=== PATIENT | male | born 1965 | race African-American/Black ===

== ENCOUNTER 2020-05-23 12:00 | Emergency (ER) | payer MEDICAID ==
[~2020-05-23] VITALS: Ht 172.7 cm; Wt 76.2 kg
[2020-05-23 12:19] VITALS: BP 158/59
--- NOTE | 2020-05-23 12:57 | NUR ---
LENNOX ARCHIBLE [phone]
[2020-05-23] MEDS ORDERED: KETOROLAC TROMETHAMINE 15 MG/ML VIAL ONE (13:14)
[2020-05-23] MEDS: KETOROLAC TROMETHAMINE INJ 30 MG/ML VIAL IM ONE (13:26)
--- NOTE | 2020-05-23 14:43 | NUR ---
Patient discharged to home in stable condition. Written and verbal after care instructions given. Patient verbalizes understanding of instruction. GIVEN RESOURCES BY SW. MATTY
--- NOTE | 2020-05-23 14:45 | NUR ---
ED RN Gener notified this patient is homeless and being discharged. SW provided the following resources. Substance Abuse resources provided included: [facility] Self-[facility]pl[facility] ([facility]) ; [facility] [address] [facility]. [place] 9[address] ; [facility] [place] [address] [facility] [address] ; [facility] [address] [address] [facility] [id number] ; [facility] [place] [address] [facility] [address] ; [facility] [address] [facility] [id number] ; [facility] [address] [facility] [id number] ; [facility] Substance Abuse Helpline([facility] ; [facility] ; [facility] [place]; [facility] [place]; [facility]; [facility] [place]; [facility] [place]; [facility]; [facility] [place]; Alcoholics Anonymous -[facility]; [facility] ; Marijuana Anonymous [facility]; Narcotics Anonymous www.na.org. Year-round shelters : [facility] [place] [address] [place], [place] [id number] ; [facility] [place] [address] [place] [address]; [facility] [facility]. [facility] [address] Hygiene: [facility]: [address] [address]. [place] ; [facility] [address] [facility] ; [facility] [address] [place] . Food Resources: [place] [facility] [address] [place]; Meet Each Need wit [place] ([facility]) [address] [facility]; [facility] [address] [facility]; [facility] [address] [facility] [place]. Mental Health resources provided: [facility] [address] [place] [address] ; [facility] [place] [address] [facility] [address], [place] [address] ; Miguelina Godinez [facility] [address] [place] [address] ; [facility] [address] [place] [address]
== END 2020-05-23 14:45 | disposition home or self-care (01) ==
LOC: ER 12:07
DX: S93.491A Sprain of other ligament of right ankle, initial encounter (principal); R60.0 Localized edema; G40.909 Epilepsy, unspecified, not intractable, without status epilepticus; X58.XXXA Exposure to other specified factors, initial encounter; Y93.39 Activity, other involving climbing, rappelling and jumping off; Y92.89 Other specified places as the place of occurrence of the external cause; Y99.8 Other external cause status
CPT/HCPCS: 73610; 73630; 96372; 99284; J1885